=== PATIENT | female | born 1990 | race Caucasian/White ===

== ENCOUNTER 2017-03-06 16:57 | Emergency (ER) | payer BC ==
[2017-03-06 17:14] VITALS: BP 143/84
[2017-03-06] MEDS ORDERED: Sucralfate 1 GM Tab PO ONE (17:45)
[2017-03-06] MEDS ORDERED: Alum Hydrox/Mag Hydrox/Simeth 30 ML, Lidocaine 2% 15 ML PO ONE ×2 (17:45)
[2017-03-06] MEDS ORDERED: Sucralfate Suspension 1 GM/10 ML Cup PO ONE (18:05)
[2017-03-06] MEDS ORDERED: Sucralfate Suspension 1 GM/10 ML Cup ONE (18:06)
[2017-03-06] MEDS ORDERED: Ketorolac 60 MG/2 ML SDV IM ONE (18:57)
[2017-03-06] MEDS ORDERED: Sodium Chloride 0.9% 10 ML Syringe FLUSH PRN ×2 (19:32→20:48)
--- NOTE | 2017-03-06 20:20 | EDM.PDOC ---
ED HPI GENERAL MEDICAL PROBLEM - General Chief Complaint: Abdominal Pain Stated Complaint: ABDOMINAL PAIN Time Seen by Provider: 03/06/17 17:40 Source of Information: Reports: Patient History Limitations: Reports: No Limitations - History of Present Illness INITIAL COMMENTS - FREE TEXT/NARRATIVE: 26-year-old female presents for evaluation and treatment of left upper quadrant abdominal pain. Patient reports that she has been experiencing abdominal pain for the past 3 years. It sounds as if she is mentioned it to several providers but never had a formal appointment to evaluate her abdominal pain. She states that the abdominal pain is always been in the left upper quadrant and feels improved when she grabs it and applies pressure. She describes it like a cramping sensation, "like after you go for a run." She states over the last few weeks the pain has now become more constant and this week it is now worsening. She states today the pain has been constant all day. She has tried Tylenol and Motrin without any symptom relief. Patient reports associated symptoms of diarrhea. She states she's had diarrhea all week, reports about 6 episodes of diarrhea this week. Denies any blood in her stool. Patient reports that she struggles with chronic nausea and takes Zofran daily. She has not noticed any change with this. Patient also reports a decreased appetite. Patient denies any urinary symptoms including dysuria or hematuria. Last menstrual period was in January 2014 as she had a hysterectomy with bilateral lateral salpingo-oophorectomy. The patient had an EGD and colonoscopy in [address] Cabrera. Reports that she has gastritis. She is currently on a PPI daily. Patient's reports that she has a past medical history of a teratoma removal. This was done at [facility] several years ago. Denies any recent travel. Denies any recent antibiotic usage. Patient reports that she has also tried gluten-free, dairy free and other diets but has not noticed any change in her symptoms. She reports drinking socially maybe once every 1-2 months. Denies any drug use. Duration: Getting Worse Location: Reports: Abdomen (LUQ) Quality: Reports: Sharp, Stabbing Severity: Severe LLQ abdomen Pain Score (Numeric/FACES): 4 - Related Data Allergies Allergy/AdvReac Type Severity Reaction Status Date / Time codeine Allergy Nausea Verified 03/06/17 17:14 hydromorphone [From Dilaudid] Allergy Hives Verified 03/06/17 17:14 Home Meds: Home Meds ALPRAZolam [Alprazolam] 1 tab PO ASDIRECTED PRN 03/06/17 [History] Acetaminophen/oxyCODONE [Percocet 325-5 MG] 1 tab PO Q6H PRN #12 tablet [Rx] Estradiol [Vivelle-Dot] 1 dose TOP ASDIRECTED 03/06/17 [History] Estriol Micronized 500 gm MC ASDIRECTED 03/06/17 [History] Omeprazole [Omeprazole] 1 tab PO DAILY 03/06/17 [History] Progesterone,Micronized [Progesterone] 100 mg PO DAILY 03/06/17 [History] Sucralfate [Carafate] 1 gm PO TIDAC #30 tablet 03/06/17 [Rx] Zolpidem Tartrate [Zolpidem Tartrate] 1 tab PO ASDIRECTED PRN 03/06/17 [History] Past Medical History HEENT History: Reports: Impaired Vision Respiratory History: Reports: Asthma Gastrointestinal History: Reports: Other (See Below) Psychiatric History: Reports: Anxiety, Depression, Other (See Below) Other Psychiatric History: currarino triad syndrome - Past Surgical History GI Surgical History: Reports: Colonoscopy, EGD, Hernia, Abdominal, Other (See Below) Other GI Surgeries/Procedures: laparotomy, laprascopy Female Surgical History: Reports: Section, Hysterectomy, Oophorectomy, Salpingo-Oophorectomy, Other (See Below) Other Female Surgeries/Procedures: teratoma removal Social & Family History - Family History Family Medical History: Noncontributory - Tobacco Use Smoking Status *Q: Never Smoker - Caffeine Use Caffeine Use: Reports: None - Recreational Drug Use Recreational Drug Use: No ED ROS GENERAL - Review of Systems Review Of Systems: See Below Constitutional: Denies: Fever, Chills GI/Abdominal: Reports: Abdominal Pain (LUQ), Diarrhea (6 episodes per week), Decreased Appetite, Nausea (chronic, no change). Denies: Hematochezia, Melena, Vomiting : Reports: No Symptoms. Denies: Dysuria ED EXAM, GI/ABD - Physical Exam Exam: See Below Exam Limited By: No Limitations General Appearance: Alert, WD/WN, Anxious, Mild Distress Respiratory/Chest: No Respiratory Distress, Lungs Clear Cardiovascular: Normal Peripheral Pulses, Regular Rate, Rhythm, No Murmur GI/Abdominal: Normal Bowel Sounds, Soft, Tenderness (LUQ). No: Guarding, Rebound, McBurney's Sign, Psoas Sign, Obturator Sign Extremities: Normal Inspection Neurological: Alert, Oriented, Normal Cognition Psychiatric: Anxious, Tearful Skin Exam: Warm, Dry, Normal Color Course - Vital Signs Last Recorded V/S: Last Vital Signs Temp 36.6 C 03/06/17 17:08 Pulse 88 03/06/17 17:08 Resp 18 03/06/17 17:08 BP 143/84 H 03/06/17 17:08 Pulse Ox 99 03/06/17 17:08 - Orders/Labs/Meds Labs: Laboratory Tests 03/06/17 03/06/17 03/06/17 Range/Units 18:00 18:00 18:00 WBC 5.67 (3.98-10.04) K/mm3 RBC 4.63 (3.98-5.22) M/mm3 Hgb 12.7 (11.2-15.7) gm/L Hct 36.9 (34.1-44.9) % MCV 79.7 (79.4-94.8) fl MCH 27.4 (25.6-32.2) pg MCHC 34.4 (32.2-35.5) g/dl RDW Std Deviation 36.7 (36.4-46.3) fL Plt Count 274 (182-369) K/mm3 MPV 8.1 L (9.4-12.3) fl Neut % (Auto) 59.1 (34.0-71.1) % Lymph % (Auto) 30.5 (19.3-51.7) % [place] % (Auto) 7.9 (4.7-12.5) % Eos % (Auto) 1.9 (0.7-5.8) Baso % (Auto) 0.4 (0.1-1.2) % Neut # (Auto) 3.35 (1.56-6.13) K/mm3 Lymph # (Auto) 1.73 (1.18-3.74) K/mm3 [place] # (Auto) 0.45 H (0.24-0.36) K/mm3 Eos # (Auto) 0.11 (0.04-0.36) K/mm3 Baso # (Auto) 0.02 (0.01-0.08) K/mm3 Sodium 141 (136-145) mEq/L Potassium 3.9 (3.5-5.1) mEq/L Chloride 106 (98-107) mEq/L Carbon Dioxide 25 (21-32) mEq/L Anion Gap 13.9 (5-15) BUN 14 (7-18) mg/dL Creatinine 0.8 (0.55-1.02) mg/dL Est Cr Clr Drug Dosing 82.80 mL/min Estimated GFR (MDRD) > 60 (>60) mL/min BUN/Creatinine Ratio 17.5 (14-18) Glucose 98 (74-106) mg/dL Calcium 8.7 (8.5-10.1) mg/dL Total Bilirubin 0.4 (0.2-1.0) mg/dL GGT 15 (5-55) U/L AST 14 L (15-37) U/L ALT 19 (14-59) U/L Alkaline Phosphatase 111 (46-116) U/L C-Reactive Protein 0.4 (<1.0) mg/dL Total Protein 7.7 (6.4-8.2) g/dl Albumin 4.1 (3.4-5.0) g/dl Globulin 3.6 gm/dL Albumin/Globulin Ratio 1.1 (1-2) Lipase 193 (73-393) U/L H. pylori IgG Antibody Negative (NEGATIVE) Meds: Medications Discontinued Medications Generic Name Dose Route Start Last Admin Trade Name Freq PRN Reason Stop Dose Admin Al Hydroxide/Mg Hydroxide 30 0 ml 03/06/17 17:45 03/06/17 18:08 ml/ Lidocaine HCl 15 ml PO 03/06/17 17:46 45 ml ONETIME ONE Administration Diatrizoate Meglum/Diatrizoate Sod 90 ml 03/06/17 20:48 03/06/17 21:12 Gastrografin 37% PO 03/06/17 20:49 90 ml ONETIME ONE Administration Iopamidol 125 ml 03/06/17 20:48 03/06/17 21:14 Isovue-300 (61%) IVPUSH 03/06/17 20:49 125 ml ONETIME ONE Administration Ketorolac Tromethamine 60 mg 03/06/17 18:57 03/06/17 19:08 Toradol IM 03/06/17 18:58 60 mg ONETIME ONE Administration Oxycodone/Acetaminophen 1 tab 03/06/17 20:55 03/06/17 21:00 Percocet 325-5 Mg PO 03/06/17 20:56 1 tab ONETIME ONE Administration Sodium Chloride 10 ml 03/06/17 19:32 Saline Flush FLUSH ASDIRECTED PRN Keep Vein Open Sodium Chloride 10 ml 03/06/17 20:48 03/06/17 21:14 Saline Flush FLUSH 10 ml ONETIME PRN Administration IV FLUSH Sucralfate 1 gm 03/06/17 17:45 03/06/17 18:09 Carafate PO 03/06/17 17:46 Not Given ONETIME ONE Sucralfate 1 gm 03/06/17 18:05 03/06/17 18:07 Carafate PO 03/06/17 18:06 1 gm ONETIME ONE Administration Sucralfate Confirm 03/06/17 18:06 03/06/17 18:09 Carafate Administered 03/06/17 18:07 Not Given Dose [address] [facility] - Radiology Interpretation Free Text/Narrative:: CT of the abdomen and pelvis impression per [facility]: No acute findings. CT Results Date: 03/06/17 - Re-Assessments/Exams Free Text/Narrative Re-Assessment/Exam: 03/06/17 18:59 Labs have returned. White blood cell count is normal at 5.67, hemoglobin 12.7 platelets are 274. CRP is within normal limits of 0.4. sodium is 141, potassium 3.9 chloride is 106. Anion gap is 13.9. AST is 14, ALT is 14 and alkaline phosphatase is 111. GGT is normal at 15. lipase is normal at 193. H. pylori is negative. I reviewed the lab results with the patient. She reports no pain relief with the GI cocktail and Carafate. Will give Toradol IV and see if that gives her additional pain relief. At this point it is unclear the etiology of her abdominal discomfort. I offered her pain medication and recommend follow-up with her primary care provider. She states that she does not want to "just take a pill ". She was no what is wrong. 03/06/17 19:34 Little to no pain relief with the Toradol. I have offered the patient's a CT of her abdomen and pelvis. At this point I do not see any reason to feel this will likely not show anything. The patient would like to get a CT to ensure that there are no masses or other concerning findings. 03/06/17 20:54 Prior to going to CT the patient is complaining of worsening pain. Will give percocet PO. She has a ride home. 03/06/17 22:[address] results with the patient. At this point it is unclear the etiology of her abdominal pain. I would like her to follow-up with her primary care provider. She may need earlier testing such as a ultrasound of her gallbladder HIDA scan as it is possible she is experiencing gallbladder attacks. She may also need stool studies to rule out things such as C. difficile. Discharge instructions as documented. Departure - Departure Time of Disposition: 22:49 Disposition: Home, Self-Care 01 Condition: Fair Clinical Impression: Abdominal pain of unknown etiology - Discharge Information Prescriptions: Acetaminophen/oxyCODONE [Percocet 325-5 MG] 1 tab PO Q6H PRN #12 tablet PRN Reason: Pain Sucralfate [Carafate] 1 gm PO TIDAC #30 tablet Instructions: Abdominal Pain, Adult, [id number] Referrals: Erika Snyder PA-C [Primary Care Provider] - Forms: ED Department Discharge Additional Instructions: You were given medication the ER they can affect your ability to drive and operate machinery. No driving or operating machinery within 12 hours of taking narcotic pain medication. [id number] ibuprofen or Tylenol as needed for pain relief. Do not take more than 4 g of Tylenol from all sources in 1 day. Percocet 1 tab every 4-6 hours as needed for severe pain. Do not drive or operate machinery within 12 hours of taking the Percocet. Percocet can be habit-forming, I recommend you take as few as needed to control your pain. Follow-up with Erika Snyder this week. You may want to discuss an ultrasound of your right upper quadrant and a HIDA scan to further evaluate for gallbladder dysfunction. Please return to the ER if your symptoms change or worsen.
[2017-03-06] MEDS ORDERED: Diatrizoate Meglumine/Diatrizoate Sodium 37% 120 ML Bottle PO ONE (20:48)
[2017-03-06] MEDS ORDERED: Iopamidol 612 MG/ML 150 ML Bottle IVPUSH ONE (20:48)
[2017-03-06] MEDS ORDERED: Acetaminophen/oxyCODONE 325-5 MG Tab PO ONE (20:55)
--- NOTE | 2017-03-08 14:37 | CT ---
CT abdomen and pelvis Technique: Multiple axial sections were obtained from above the dome of the diaphragm inferiorly through the pubic symphysis. Intravenous and oral contrast was utilized. Delayed images were also obtained through the bladder. Comparison: Previous CT abdomen and pelvis exam of 03/03/13. Findings: Visualized lung base show nothing acute. Liver shows no focal parenchymal abnormality. Spleen appears within normal limits. Adrenal glands show no nodule. Kidneys show symmetric contrast enhancement without hydronephrosis. Cyst is identified within the upper right kidney which measures approximately 1.5 cm in size and is stable from prior CT. Aorta shows no aneurysmal dilatation. Gallbladder shows no calcified gallstones. No retroperitoneal adenopathy or mesenteric abnormalities are seen. Appendix is seen which appears normal. No pelvic mass or adenopathy is seen. Delayed images show contrast within the distal ureters and within the bladder. Bone window settings were reviewed which appear within normal limits for the patient's age. Impression: 1. No acute abnormality is identified on CT study of the abdomen and pelvis. When compared to prior exam, cystic lesion seen within the pelvis is no longer identified. Other portions of the study remains stable. Diagnostic code #2 I agree with preliminary report issued by [employer] ([facility] preliminary report dictated on 03/06/17, 10:31 PM Central Time)
== END 2017-03-06 23:00 | disposition home or self-care (01) ==
LOC: JD.ED 16:57
DX: R10.12 Left upper quadrant pain (principal); J45.909 Unspecified asthma, uncomplicated; F41.9 Anxiety disorder, unspecified; F32.9 Major depressive disorder, single episode, unspecified; Z90.710 Acquired absence of both cervix and uterus; Z98.890 Other specified postprocedural states; Z79.899 Other long term (current) drug therapy; Z88.5 Allergy status to narcotic agent
CPT/HCPCS: 36415; 74177; 80053; 82977; 83690; 85025; 86140; 86677; 96372; 99284; A9270; J1885; J7050; Q9963; Q9967

== ENCOUNTER 2022-04-21 20:19 | Emergency (ER) | payer BC ==
[2022-04-21] MEDS ORDERED: Sodium Chloride 0.9% 1,000 ML IV SCH (20:45)
[2022-04-21] MEDS ORDERED: Iopamidol 755 Mg/ML 100 ML Bottle IVPUSH ONE (21:03)
[2022-04-21] MEDS ORDERED: Sodium Chloride 0.9% 100 ML IV SCH (21:15)
[2022-04-21 21:42] VITALS: BP 142/93; PULSE 117
== END 2022-04-21 23:04 | disposition home or self-care (01) ==
LOC: JD.ED 20:19
DX: R00.0 Tachycardia, unspecified (principal); K21.9 Gastro-esophageal reflux disease without esophagitis; E66.9 Obesity, unspecified; Z68.34 Body mass index [BMI] 34.0-34.9, adult; Z88.8 Allergy status to other drugs, medicaments and biological substances; Z88.5 Allergy status to narcotic agent; Z88.6 Allergy status to analgesic agent; Z79.899 Other long term (current) drug therapy
CPT/HCPCS: 71275; 96360; 99285; J7030; Q9967

== ENCOUNTER 2023-04-15 14:15 | Emergency (ER) | payer BC ==
[2023-04-15] MEDS ORDERED: Ondansetron 4 MG/2 ML SDV IVPUSH ONE (15:29)
[2023-04-15] MEDS ORDERED: Morphine 2 MG/ML SYRINGE IVPUSH ONE (15:29)
[2023-04-15] MEDS ORDERED: Sodium Chloride 0.9% 1,000 ML IV ONE (15:29)
[2023-04-15 15:30] LABS: BASOPHILS ABSOLUTE AUTO 0.01 K/mm3 (0.01-0.08); BASOPHILS PERCENT AUTO 0.1 % (0.1-1.2); EOSINOPHILS ABSOLUTE AUTO 0.13 K/mm3 (0.04-0.36); EOSINOPHILS PERCENT AUTO 1.7 (0.7-5.8); HEMATOCRIT 38.9 % (34.1-44.9); HEMOGLOBIN 13.1 gm/dl (11.2-15.7); IMMATURE GRAN ABSOLUTE AUTO 0.02 K/mm3 (0.00-0.10); IMMATURE GRAN PERCENT AUTO 0.3 % (<=1.0); LYMPHOCYTES ABSOLUTE AUTO 1.91 K/mm3 (1.18-3.74); LYMPHOCYTES PERCENT AUTO 25.1 % (19.3-51.7); MEAN CORPUSCULAR HEMOGLOBIN 26.7 pg (25.6-32.2); MEAN CORPUSCULAR HGB CONC 33.7 g/dl (32.2-35.5); MEAN CORPUSCULAR VOLUME 79.4 fl (79.4-94.8); MEAN PLATELET VOLUME 8.3 fl (9.4-12.3); MONOCYTES ABSOLUTE AUTO 0.52 K/mm3 (0.24-0.36); MONOCYTES PERCENT AUTO 6.8 % (4.7-12.5); NEUTROPHILS ABSOLUTE AUTO 5.01 K/mm3 (1.56-6.13); PLATELET COUNT,PLT 353 K/mm3 (182-369)
[2023-04-15 15:52] LABS: A/G RATIO 1.1 (1-2); ALANINE AMINOTRANSFERASE,ALT 17 U/L (14-59); ALBUMIN 4.1 g/dl (3.4-5.0); ALKALINE PHOSPHATASE 127 U/L (46-116); ANION GAP 14.9 (5-15); ASPARTATE AMNIOTRANSFERASE,AST 10 U/L (15-37); BILIRUBIN TOTAL 0.3 mg/dL (0.2-1.0); BLOOD UREA NITROGEN,BUN 13 mg/dL (7-18); BUN/CREATININE RATIO 18.6 (14-18); C-REACTIVE PROTEIN < 0.2 mg/dL (<1.0); CALCIUM 9.3 mg/dL (8.5-10.1); CARBON DIOXIDE,CO2 25 mEq/L (21-32); CHLORIDE,CL 105 mEq/L (98-107); CREATININE 0.7 mg/dL (0.55-1.02); ESTIMATED GFR 116 mL/min (>60); GLUCOSE RANDOM 102 mg/dL (70-99); POTASSIUM,K 3.9 mEq/L (3.5-5.1); SODIUM,NA 141 mEq/L (136-145)
[2023-04-15 16:35] LABS: APPEARANCE,URINE SLT CLOUDY (Clear); BILIRUBIN,URINE NEGATIVE (Negative); COLOR,URINE YELLOW (Yellow); GLUCOSE,URINE NEGATIVE (Negative); KETONES,URINE NEGATIVE (Negative); LEUKOCYTE ESTERASE,URINE TRACE (Negative); NITRITE,URINE NEGATIVE (Negative); OCCULT BLOOD,URINE 3+ (Negative); PROTEIN,URINE 2+ (Negative); UROBILINOGEN,URINE 0.2 (0.2-1.0)
[2023-04-15 16:40] LABS: BACTERIA,URINE MODERATE /hpf (FEW); MUCUS,URINE FEW /hpf (FEW); RBC,URINE >100 /hpf (0-5)
[2023-04-15 18:50] VITALS: BP 136/81; PULSE 81
== END 2023-04-15 18:50 | disposition home or self-care (01) ==
LOC: JD.ED 14:15
DX: N20.0 Calculus of kidney (principal); I10 Essential (primary) hypertension; K21.9 Gastro-esophageal reflux disease without esophagitis; J45.909 Unspecified asthma, uncomplicated; E66.9 Obesity, unspecified; Z79.899 Other long term (current) drug therapy; Z88.5 Allergy status to narcotic agent; Z88.8 Allergy status to other drugs, medicaments and biological substances
CPT/HCPCS: 36415; 74176; 80053; 81001; 84703; 85025; 86140; 96361; 96374; 96375; 99284; J2270; J2405; J7030

== ENCOUNTER 2023-06-19 12:39 | Emergency (ER) | payer BC ==
[2023-06-19] MEDS ORDERED: Ondansetron 4 MG/2 ML SDV IVPUSH ONE (13:12)
[2023-06-19] MEDS ORDERED: Sodium Chloride 0.9% 10 ML Syringe FLUSH PRN (13:12)
[2023-06-19] MEDS ORDERED: Sodium Chloride 0.9% 1,000 ML IV SCH (13:15)
[2023-06-19] MEDS ORDERED: Ketorolac 30 MG/ML SDV IVPUSH ONE (13:16)
[2023-06-19] MEDS ORDERED: HYDROmorphone 0.5 MG/0.5 ML Syringe IVPUSH ONE (13:16)
[2023-06-19 13:58] LABS: BASOPHILS PERCENT AUTO 0.2 % (0.0-1.0); EOSINOPHILS ABSOLUTE AUTO 0.1 K/mm3 (0.0-0.4); EOSINOPHILS PERCENT AUTO 1.4 % (0.0-6.0); HEMATOCRIT 36.6 % (37.0-47.0); HEMOGLOBIN 12.7 gm/dl (12.0-16.0); IMMATURE GRAN ABSOLUTE AUTO 0.01 K/mm3 (0.00-0.05); IMMATURE GRAN PERCENT AUTO 0.2 % (0.0-0.4); LYMPHOCYTES ABSOLUTE AUTO 1.9 K/mm3 (1.0-4.8); MEAN CORPUSCULAR HEMOGLOBIN 27.4 pg (28.0-32.0); MEAN CORPUSCULAR HGB CONC 34.7 g/dl (32.0-36.0); MEAN CORPUSCULAR VOLUME 78.9 fl (83.0-99.0); MEAN PLATELET VOLUME 7.9 fl (9.4-12.3); MONOCYTES ABSOLUTE AUTO 0.4 K/mm3 (0.0-0.8); MONOCYTES PERCENT AUTO 6.2 % (0.0-8.0); NEUTROPHILS ABSOLUTE AUTO 3.3 K/mm3 (1.8-7.7); PLATELET COUNT,PLT 219 K/mm3 (150-400); RED BLOOD CELL COUNT 4.64 M/mm3 (4.10-5.30); WHITE BLOOD CELL COUNT,WBC 5.62 K/mm3 (3.9-11.3)
[2023-06-19 13:59] LABS: APPEARANCE,URINE SLT CLOUDY (Clear); BILIRUBIN,URINE NEGATIVE (Negative); COLOR,URINE YELLOW (Yellow); GLUCOSE,URINE NEGATIVE (Negative); KETONES,URINE 2+ (Negative); LEUKOCYTE ESTERASE,URINE NEGATIVE (Negative); NITRITE,URINE NEGATIVE (Negative); OCCULT BLOOD,URINE 3+ (Negative); PROTEIN,URINE 2+ (Negative); UROBILINOGEN,URINE 0.2 (0.2-1.0)
[2023-06-19 14:17] LABS: BACTERIA,URINE MODERATE /hpf (FEW); MUCUS,URINE MANY /hpf (FEW); RBC,URINE 50-75 /hpf (0-5); SQUAMOUS EPITHELIAL CELLS,UR 0-5 /hpf (0-5); WBC,URINE NOT SEEN /hpf (0-5)
[2023-06-19 14:34] LABS: A/G RATIO 1.1 (1-2); ALBUMIN 4.1 g/dl (3.4-5.0); ANION GAP 15.8 (5-15); BILIRUBIN TOTAL 0.6 mg/dL (0.2-1.0); CALCIUM 9.2 mg/dL (8.5-10.1); CREATININE 0.7 mg/dL (0.55-1.02); EST CRCL DRUG DOSING (CG) 89.56 mL/min; POTASSIUM,K 3.8 mEq/L (3.5-5.1); PROTEIN TOTAL,TP 7.7 g/dl (6.4-8.2)
[2023-06-19 15:43] VITALS: BP 120/73; PULSE 76
== END 2023-06-19 15:25 | disposition home or self-care (01) ==
LOC: JD.ED 12:39
DX: N20.2 Calculus of kidney with calculus of ureter (principal); E66.9 Obesity, unspecified; I10 Essential (primary) hypertension; K21.9 Gastro-esophageal reflux disease without esophagitis; Z79.899 Other long term (current) drug therapy; Z88.8 Allergy status to other drugs, medicaments and biological substances; Z88.5 Allergy status to narcotic agent; Z68.28 Body mass index [BMI] 28.0-28.9, adult
CPT/HCPCS: 36415; 74176; 80053; 81001; 83690; 84703; 85025; 96361; 96374; 96375; 99284; J1885; J2405; J3490; J7030

== ENCOUNTER 2023-08-15 13:21 | Emergency (ER) | payer BC ==
[2023-08-15 13:46] VITALS: PULSE 113
[2023-08-15] MEDS ORDERED: Ondansetron 4 MG/2 ML SDV IVPUSH ONE (13:53)
[2023-08-15] MEDS ORDERED: fentaNYL 100 MCG/2 ML SDV IVPUSH ONE ×3 (13:54→16:04)
[2023-08-15] MEDS ORDERED: Sodium Chloride 0.9% 1,000 ML IV SCH (14:00)
[2023-08-15 14:34] LABS: BASOPHILS PERCENT AUTO 0.4 % (0.0-1.0); EOSINOPHILS ABSOLUTE AUTO 0.2 K/mm3 (0.0-0.4); EOSINOPHILS PERCENT AUTO 2.3 % (0.0-6.0); HEMATOCRIT 38.3 % (37.0-47.0); HEMOGLOBIN 13.2 gm/dl (12.0-16.0); IMMATURE GRAN ABSOLUTE AUTO 0.01 K/mm3 (0.00-0.05); IMMATURE GRAN PERCENT AUTO 0.1 % (0.0-0.4); LYMPHOCYTES ABSOLUTE AUTO 2.6 K/mm3 (1.0-4.8); LYMPHOCYTES PERCENT AUTO 37.2 % (24.0-44.0); MEAN CORPUSCULAR HEMOGLOBIN 27.6 pg (28.0-32.0); MEAN CORPUSCULAR HGB CONC 34.5 g/dl (32.0-36.0); MEAN PLATELET VOLUME 8.3 fl (9.4-12.3); MONOCYTES ABSOLUTE AUTO 0.4 K/mm3 (0.0-0.8); MONOCYTES PERCENT AUTO 5.2 % (0.0-8.0); NEUTROPHILS ABSOLUTE AUTO 3.8 K/mm3 (1.8-7.7); NEUTROPHILS PERCENT AUTO 54.8 % (41.0-71.0); RED BLOOD CELL COUNT 4.79 M/mm3 (4.10-5.30); WHITE BLOOD CELL COUNT,WBC 6.94 K/mm3 (3.9-11.3)
[2023-08-15 14:38] LABS: PLATELET COUNT,PLT 306 K/mm3 (150-400)
[2023-08-15 14:46] LABS: APPEARANCE,URINE CLOUDY (Clear); BILIRUBIN,URINE NEGATIVE (Negative); COLOR,URINE AMBER (Yellow); GLUCOSE,URINE NEGATIVE (Negative); KETONES,URINE NEGATIVE (Negative); LEUKOCYTE ESTERASE,URINE 1+ (Negative); NITRITE,URINE NEGATIVE (Negative); OCCULT BLOOD,URINE 3+ (Negative); PROTEIN,URINE 3+ (Negative); UROBILINOGEN,URINE 0.2 (0.2-1.0)
[2023-08-15 14:54] LABS: A/G RATIO 1.1 (1-2); ALANINE AMINOTRANSFERASE,ALT 14 U/L (14-59); ALBUMIN 4.1 g/dl (3.4-5.0); ALKALINE PHOSPHATASE 105 U/L (46-116); ANION GAP 16.8 (5-15); ASPARTATE AMNIOTRANSFERASE,AST 15 U/L (15-37); BILIRUBIN TOTAL 0.6 mg/dL (0.2-1.0); BLOOD UREA NITROGEN,BUN 15 mg/dL (7-18); BUN/CREATININE RATIO 16.7 (14-18); C-REACTIVE PROTEIN <0.2 mg/dL (<1.0); CALCIUM 9.7 mg/dL (8.5-10.1); CARBON DIOXIDE,CO2 25 mEq/L (21-32); CHLORIDE,CL 107 mEq/L (98-107); CREATININE 0.9 mg/dL (0.55-1.02); ESTIMATED GFR 86 mL/min (>60); GLUCOSE RANDOM 99 mg/dL (70-99); POTASSIUM,K 3.8 mEq/L (3.5-5.1); PROTEIN TOTAL,TP 7.9 g/dl (6.4-8.2); SODIUM,NA 145 mEq/L (136-145)
[2023-08-15 14:55] LABS: SLIDE REVIEW NORMAL SMEAR
[2023-08-15 14:57] LABS: BACTERIA,URINE FEW /hpf (FEW); MUCUS,URINE FEW /hpf (FEW); RBC,URINE TOO NUMEROUS TO CNT /hpf (0-5); WBC,URINE 0-5 /hpf (0-5)
[2023-08-15] MEDS ORDERED: cefTRIAXone 1 GM in Sodium Chloride 0.9% 100 ML IV ONE (15:31)
[2023-08-15] MEDS ORDERED: Sodium Chloride 0.9% 1,000 ML IV ONE (15:54)
[2023-08-15] MEDS ORDERED: Acetaminophen/oxyCODONE 325-5 MG Tab PO ONE (17:27)
[2023-08-15] MEDS ORDERED: Metoclopramide 10 MG/2 ML SDV IVPUSH ONE (18:03)
[2023-08-15] MEDS ORDERED: Ketorolac 30 MG/ML SDV IVPUSH ONE (18:13)
[2023-08-15 20:41] VITALS: BP 117/79
== END 2023-08-15 20:38 | disposition home or self-care (01) ==
LOC: JD.ED 13:21
DX: N23 Unspecified renal colic (principal); Z96.0 Presence of urogenital implants; I10 Essential (primary) hypertension; J45.909 Unspecified asthma, uncomplicated; K21.9 Gastro-esophageal reflux disease without esophagitis; E66.9 Obesity, unspecified; Z90.710 Acquired absence of both cervix and uterus; Z88.5 Allergy status to narcotic agent; Z88.6 Allergy status to analgesic agent; Z88.4 Allergy status to anesthetic agent; Z68.27 Body mass index [BMI] 27.0-27.9, adult
CPT/HCPCS: 36415; 74176; 80053; 81001; 85025; 86140; 87086; 96365; 96375; 96376; 99284; A9270; J0696; J1885; J2405; J2765; J3010; J3490; J7030

== ENCOUNTER 2025-06-13 22:04 | Emergency (ER) | payer BC ==
[2025-06-13] MEDS ORDERED: Sodium Chloride 0.9% 10 ML Syringe FLUSH PRN (22:33)
[2025-06-13] MEDS: Ondansetron 4 MG/2 ML SDV IVPUSH ONE (22:52)
[2025-06-13 22:59] LABS: BASOPHILS ABSOLUTE AUTO 0.0 K/mm3 (0.0-0.2); BASOPHILS PERCENT AUTO 0.2 % (0.0-1.0); EOSINOPHILS ABSOLUTE AUTO 0.1 K/mm3 (0.0-0.4); EOSINOPHILS PERCENT AUTO 1.0 % (0.0-6.0); IMMATURE GRAN ABSOLUTE AUTO 0.03 K/mm3 (0.00-0.05); IMMATURE GRAN PERCENT AUTO 0.3 % (0.0-0.4); LYMPHOCYTES ABSOLUTE AUTO 3.6 K/mm3 (1.0-4.8); LYMPHOCYTES PERCENT AUTO 36.6 % (24.0-44.0); MEAN PLATELET VOLUME 8.1 fl (9.4-12.3); MONOCYTES ABSOLUTE AUTO 0.6 K/mm3 (0.0-0.8); MONOCYTES PERCENT AUTO 6.4 % (0.0-8.0); NEUTROPHILS ABSOLUTE AUTO 5.5 K/mm3 (1.8-7.7); NEUTROPHILS PERCENT AUTO 55.5 % (41.0-71.0); NRBC ABSOLUTE 0.00 (0.00-0.02); NRBC PERCENT 0.0 % (0.0-0.2); PLATELET COUNT,PLT 262 K/mm3 (150-400); RED BLOOD CELL COUNT 4.45 M/mm3 (4.10-5.30); WHITE BLOOD CELL COUNT,WBC 9.83 K/mm3 (3.9-11.3)
[2025-06-13 23:23] LABS: A/G RATIO 1.2 (1-2); ALANINE AMINOTRANSFERASE,ALT 24.0 U/L (14-59); ASPARTATE AMNIOTRANSFERASE,AST 12.0 U/L (15-37); BILIRUBIN TOTAL 0.4 mg/dL (0.2-1.0); BLOOD UREA NITROGEN,BUN 19.0 mg/dL (7-18); CARBON DIOXIDE,CO2 29.0 mEq/L (21-32); CHLORIDE,CL 107.0 mEq/L (98-107); CREATININE 0.9 mg/dL (0.55-1.02); EST CRCL DRUG DOSING (CG) 68.35 mL/min; ESTIMATED GFR 85.0 mL/min (>60); GLUCOSE RANDOM 107.0 mg/dL (70-99); POTASSIUM,K 3.3 mEq/L (3.5-5.1); PROTEIN TOTAL,TP 7.4 g/dl (6.4-8.2); SODIUM,NA 145.0 mEq/L (136-145)
[2025-06-13 23:25] LABS: LACTIC ACID 0.9 mmol/L (0.4-2.0)
[2025-06-13 23:58] LABS: APPEARANCE,URINE CLEAR (Clear); GLUCOSE,URINE NEGATIVE (Negative); OCCULT BLOOD,URINE TRACE-INTACT (Negative)
[2025-06-14] MEDS: Potassium Bicarbonate/Cit Ac 20 MEQ Effervescent Tab PO ONE (00:45)
[2025-06-14 01:04] VITALS: BP 117/69; PULSE 87
== END 2025-06-14 00:55 | disposition home or self-care (01) ==
LOC: JD.ED 22:04
DX: R19.7 Diarrhea, unspecified (principal); E86.0 Dehydration; E87.6 Hypokalemia; I10 Essential (primary) hypertension; E66.9 Obesity, unspecified; K21.9 Gastro-esophageal reflux disease without esophagitis; M19.90 Unspecified osteoarthritis, unspecified site; Z79.899 Other long term (current) drug therapy; Z88.8 Allergy status to other drugs, medicaments and biological substances; Z88.6 Allergy status to analgesic agent; Z90.710 Acquired absence of both cervix and uterus; Z68.25 Body mass index [BMI] 25.0-25.9, adult
CPT/HCPCS: 36415; 76705; 80053; 81001; 83605; 83690; 83735; 84703; 85025; 96361; 96374; 99284; A9270; J2405; J7030

== ENCOUNTER 2025-06-16 08:00 | Emergency (ER) | payer BC ==
[2025-06-16] MEDS: droPERidol 2.5 MG/ML SDV IV STA (08:23)
[2025-06-16 08:28] LABS: BASOPHILS ABSOLUTE AUTO 0.0 K/mm3 (0.0-0.2); BASOPHILS PERCENT AUTO 0.3 % (0.0-1.0); EOSINOPHILS ABSOLUTE AUTO 0.2 K/mm3 (0.0-0.4); EOSINOPHILS PERCENT AUTO 1.9 % (0.0-6.0); IMMATURE GRAN ABSOLUTE AUTO 0.02 K/mm3 (0.00-0.05); IMMATURE GRAN PERCENT AUTO 0.2 % (0.0-0.4); LYMPHOCYTES ABSOLUTE AUTO 1.5 K/mm3 (1.0-4.8); LYMPHOCYTES PERCENT AUTO 17.2 % (24.0-44.0); MEAN PLATELET VOLUME 8.2 fl (9.4-12.3); MONOCYTES ABSOLUTE AUTO 0.8 K/mm3 (0.0-0.8); MONOCYTES PERCENT AUTO 8.7 % (0.0-8.0); NEUTROPHILS ABSOLUTE AUTO 6.4 K/mm3 (1.8-7.7); NEUTROPHILS PERCENT AUTO 71.7 % (41.0-71.0); NRBC ABSOLUTE 0.00 (0.00-0.02); NRBC PERCENT 0.0 % (0.0-0.2); PLATELET COUNT,PLT 247 K/mm3 (150-400); RED BLOOD CELL COUNT 4.54 M/mm3 (4.10-5.30); WHITE BLOOD CELL COUNT,WBC 8.96 K/mm3 (3.9-11.3)
[2025-06-16 08:51] LABS: A/G RATIO 1.0 (1-2); ALANINE AMINOTRANSFERASE,ALT 26.0 U/L (14-59); ASPARTATE AMNIOTRANSFERASE,AST 19.0 U/L (15-37); BILIRUBIN TOTAL 0.4 mg/dL (0.2-1.0); BLOOD UREA NITROGEN,BUN 14.0 mg/dL (7-18); CARBON DIOXIDE,CO2 27.0 mEq/L (21-32); CHLORIDE,CL 108.0 mEq/L (98-107); CREATINE KINASE,CK 32.0 U/L (26-192); CREATININE 0.8 mg/dL (0.55-1.02); EST CRCL DRUG DOSING (CG) 76.89 mL/min; ESTIMATED GFR 98.0 mL/min (>60); GLUCOSE RANDOM 104.0 mg/dL (70-99); POTASSIUM,K 3.9 mEq/L (3.5-5.1); PROTEIN TOTAL,TP 7.3 g/dl (6.4-8.2); SODIUM,NA 144.0 mEq/L (136-145)
[2025-06-16] MEDS: Ketorolac 60 MG/2 ML SDV IVPUSH STA (09:41)
[2025-06-16 09:52] VITALS: BP 108/69; PULSE 77
[2025-06-16 10:10] LABS: BUPRENORPHINE SCREEN,URINE NEGATIVE (CUTOFF=10); METHADONE SCREEN, URINE NEGATIVE (CUTOFF=200); METHAMPHETAMINES SCREEN, URINE NEGATIVE (CUTOFF=500); OXYCODONE SCREEN,URINE NEGATIVE (CUT0FF=100); THC SCREEN,URINE 20 NG/ML PRESUMPTIVE POSITIVE (CUTOFF=50)
[2025-06-16 10:34] LABS: AMPHETAMINES SCREEN, URINE NEGATIVE (CUTOFF=500)
== END 2025-06-16 09:52 | disposition home or self-care (01) ==
LOC: JD.ED 08:00
DX: K63.89 Other specified diseases of intestine (principal); I10 Essential (primary) hypertension; J45.909 Unspecified asthma, uncomplicated; Z88.8 Allergy status to other drugs, medicaments and biological substances; Z88.5 Allergy status to narcotic agent; Z79.899 Other long term (current) drug therapy
CPT/HCPCS: 36415; 80053; 80306; 82550; 83690; 83735; 84703; 85025; 96361; 96374; 96375; 99284; J1790; J1885; J2470; J7030